=== PATIENT | male | born 1935 | race Caucasian/White ===

== ENCOUNTER 2018-03-16 15:36 | Inpatient (IN) | payer OTHER, MEDICAID ==
[~2018-03-16] VITALS: Ht 175.3 cm; Wt 89.8 kg
[2018-03-16] MEDS ORDERED: KETOROLAC 30MG/ML VIAL IV STA (17:37)
[2018-03-16] MEDS ORDERED: TETANUS, DIPHTHERIA, PERTUSSIS VAC/PF 0.5ML (>7YR OLD) IM ONE (17:45)
[2018-03-16 18:21] LABS: BASOPHILS % 0.6 % (0.0-2.0); EOSINOPHILS % 0.6 % (0.0-5.0); HEMATOCRIT. 42.5 % (42.0-52.0); HEMOGLOBIN. 14.6 g/dL (14.0-18.0); LYMPHOCYTES % 14.6 % (20.0-50.0); MEAN CORPUSCULAR HEMOGLOBIN 31.3 pg (28.0-32.0); MEAN PLATELET VOLUME 8.7 fl (7.4-10.4); MONOCYTES % 7.5 % (2.0-8.0); NEUTROPHILS % 76.7 % (40.0-76.0); PLATELET 212 x1000/uL (130-400); RED BLOOD CELL COUNT 4.67 mill/uL (4.7-6.1); RED CELL DISTRIBUTION WIDTH 14.8 % (11.6-14.6)
[2018-03-16 18:22] LABS: CHLORIDE 105 mEq/L (98-107)
[2018-03-16 18:24] LABS: PARTIAL THROMBOPLASTIN TIME 25.8 sec (23.4-31.0); PROTHROMBIN TIME 10.7 sec (9.4-11.6)
[2018-03-16] MEDS ORDERED: LABETALOL 5MG/ML SYR 20 MG/4 ML SYRINGE IV ONE (19:00)
[2018-03-16 19:34] LABS: BASOPHILS % 0.6 % (0.0-2.0); EOSINOPHILS % 0.4 % (0.0-5.0); HEMATOCRIT. 39.4 % (42.0-52.0); HEMOGLOBIN. 13.2 g/dL (14.0-18.0); LYMPHOCYTES % 14.6 % (20.0-50.0); MEAN CORPUSCULAR HEMOGLOBIN 30.3 pg (28.0-32.0); MEAN CORPUSCULAR VOLUME 90.4 fL (80.0-94.0); MEAN PLATELET VOLUME 8.8 fl (7.4-10.4); NEUTROPHILS % 77.4 % (40.0-76.0); PLATELET 204 x1000/uL (130-400); RED BLOOD CELL COUNT 4.36 mill/uL (4.7-6.1); RED CELL DISTRIBUTION WIDTH 14.1 % (11.6-14.6)
[2018-03-17] VITALS (7 sets, daily range): BP systolic 104–181; BP diastolic 50–76
[2018-03-17] MEDS ORDERED: ONDANSETRON HCL 4MG/2ML VIAL IV PRN (05:00)
[2018-03-17] MEDS ORDERED: GUAIFENESIN 200MG/10ML SUGAR FREE UDC PO PRN (05:00)
[2018-03-17] MEDS ORDERED: DOCUSATE SODIUM 100MG CAPSULE PO PRN (05:00)
[2018-03-17] MEDS ORDERED: ACETAMINOPHEN 325MG TABLET PO PRN (05:00)
[2018-03-17] MEDS ORDERED: CLONIDINE 0.1MG TABLET PO PRN (05:00)
[2018-03-17] MEDS ORDERED: HYDROCODONE/ACETAMINOPHEN 5/325MG TABLET PO PRN (05:00)
[2018-03-17] MEDS: SODIUM CHLORIDE 0.45% 1,000 ML IV SCH ×2 (06:02→20:39)
[2018-03-17] MEDS ORDERED: AMLO5TAB4 MT (11:18)
[2018-03-17] MEDS ORDERED: SENN-46 PO (11:18)
[2018-03-17] MEDS ORDERED: FURO-151 PO (11:18)
[2018-03-17] MEDS ORDERED: ISOS10TA53 PO (11:18)
[2018-03-17] MEDS ORDERED: HALO2TAB PO (11:18)
[2018-03-17] MEDS ORDERED: ASPI-1159 PO (11:18)
[2018-03-18 04:00] VITALS: BP 149/70
[2018-03-18 07:42] LABS: EOSINOPHILS % 6.9 % (0.0-5.0); HEMATOCRIT. 32.5 % (42.0-52.0); HEMOGLOBIN. 11.1 g/dL (14.0-18.0); LYMPHOCYTES % 27.7 % (20.0-50.0); MEAN CORPUSCULAR HEMOGLOBIN 30.8 pg (28.0-32.0); MEAN CORPUSCULAR VOLUME 89.8 fL (80.0-94.0); MONOCYTES % 9.3 % (2.0-8.0); NEUTROPHILS % 55.1 % (40.0-76.0); PLATELET 180 x1000/uL (130-400); RED BLOOD CELL COUNT 3.61 mill/uL (4.7-6.1); RED CELL DISTRIBUTION WIDTH 14.2 % (11.6-14.6)
[2018-03-18 08:00] VITALS: BP 152/55
[2018-03-18 08:06] LABS: CHLORIDE 107 mEq/L (98-107)
[2018-03-18 08:15] LABS: LDL CHOLESTEROL 122 mg/dL (5-100)
[2018-03-18 08:17] LABS: HDL CHOLESTEROL 36 mg/dL (40-59)
[2018-03-18] MEDS: AMLODIPINE 10MG TABLET PO SCH ×2 (08:31→08:39)
[2018-03-18] MEDS: NEOMY SULF/BACITRAC ZN/POLY OINT 28GM TOP SCH (08:42)
[2018-03-18 12:00] VITALS: BP 147/61
[2018-03-18] MEDS: SODIUM CHLORIDE 0.45% 1,000 ML IV SCH (13:19)
[2018-03-18 16:48] VITALS: BP 158/63
[2018-03-18 20:00] VITALS: BP 156/67
[2018-03-19] VITALS: BP 151/54
[2018-03-19 04:00] VITALS: BP 140/62
[2018-03-19] MEDS: SODIUM CHLORIDE 0.45% 1,000 ML IV SCH (05:42)
[2018-03-19 08:00] VITALS: BP 184/66
[2018-03-19] MEDS ORDERED: MEDICATION NOT ON FORMULARY EA (Isosorbide Mononitrate 1 TAB) PO SCH (09:00)
[2018-03-19] MEDS ORDERED: AMLODIPINE 5MG TABLET PO SCH (09:00)
[2018-03-19] MEDS: ISOSORBIDE DINITRATE 10MG TABLET PO SCH ×3 (09:37→17:15)
[2018-03-19] MEDS: AMLODIPINE 10MG TABLET PO SCH (09:37)
[2018-03-19] MEDS: FUROSEMIDE 40MG TABLET PO SCH ×2 (09:37→17:15)
[2018-03-19] MEDS: HALOPERIDOL 1MG TABLET PO SCH ×2 (09:38→17:15)
[2018-03-19] MEDS: ASPIRIN 81MG EC TABLET PO SCH (09:38)
[2018-03-19] MEDS: SENNOSIDES 8.6MG TABLET PO SCH (09:38)
[2018-03-19] MEDS: NEOMY SULF/BACITRAC ZN/POLY OINT 28GM TOP SCH (09:38)
[2018-03-19 12:00] VITALS: BP 119/63
[2018-03-19 16:00] VITALS: BP 125/58
[2018-03-19 20:00] VITALS: BP 129/41
[2018-03-20] VITALS: BP 112/55
[2018-03-20] MEDS: SODIUM CHLORIDE 0.45% 1,000 ML IV SCH ×2 (00:41→17:57)
[2018-03-20 04:00] VITALS: BP 136/62
[2018-03-20 08:00] VITALS: BP 131/58
[2018-03-20] MEDS: ASPIRIN 81MG EC TABLET PO SCH (10:08)
[2018-03-20] MEDS: SENNOSIDES 8.6MG TABLET PO SCH (10:08)
[2018-03-20] MEDS: ISOSORBIDE DINITRATE 10MG TABLET PO SCH ×3 (10:08→17:58)
[2018-03-20] MEDS: FUROSEMIDE 40MG TABLET PO SCH ×2 (10:09→17:58)
[2018-03-20] MEDS: AMLODIPINE 10MG TABLET PO SCH (10:09)
[2018-03-20] MEDS: NEOMY SULF/BACITRAC ZN/POLY OINT 28GM TOP SCH (10:10)
[2018-03-20 12:00] VITALS: BP 124/59
[2018-03-20] MEDS: HALOPERIDOL 1MG TABLET PO SCH ×2 (13:41→17:57)
[2018-03-20 16:00] VITALS: BP 134/58
[2018-03-20 20:00] VITALS: BP 130/56
[2018-03-21] VITALS (7 sets, daily range): BP systolic 114–161; BP diastolic 50–75
[2018-03-21] MEDS: SENNOSIDES 8.6MG TABLET PO SCH (10:11)
[2018-03-21] MEDS: SODIUM CHLORIDE 0.45% 1,000 ML IV SCH (10:11)
[2018-03-21] MEDS: FUROSEMIDE 40MG TABLET PO SCH ×2 (10:11→17:24)
[2018-03-21] MEDS: ASPIRIN 81MG EC TABLET PO SCH (10:11)
[2018-03-21] MEDS: AMLODIPINE 10MG TABLET PO SCH (10:12)
[2018-03-21] MEDS: NEOMY SULF/BACITRAC ZN/POLY OINT 28GM TOP SCH (10:12)
[2018-03-21] MEDS: ISOSORBIDE DINITRATE 10MG TABLET PO SCH ×3 (10:12→17:25)
[2018-03-21] MEDS: HALOPERIDOL 1MG TABLET PO SCH ×2 (10:12→17:24)
[2018-03-21 22:03] LABS: BASOPHILS % 0.8 % (0.0-2.0); EOSINOPHILS % 5.1 % (0.0-5.0); HEMATOCRIT. 33.8 % (42.0-52.0); HEMOGLOBIN. 11.6 g/dL (14.0-18.0); LYMPHOCYTES % 22.4 % (20.0-50.0); MEAN CORPUSCULAR HEMOGLOBIN 30.6 pg (28.0-32.0); MEAN CORPUSCULAR VOLUME 89.4 fL (80.0-94.0); MEAN PLATELET VOLUME 8.6 fl (7.4-10.4); MONOCYTES % 11.4 % (2.0-8.0); NEUTROPHILS % 60.3 % (40.0-76.0); PLATELET 211 x1000/uL (130-400); RED BLOOD CELL COUNT 3.78 mill/uL (4.7-6.1); RED CELL DISTRIBUTION WIDTH 14.1 % (11.6-14.6)
[2018-03-22] VITALS: BP 127/61
[2018-03-22] MEDS: SODIUM CHLORIDE 0.45% 1,000 ML IV SCH (01:40)
[2018-03-22 04:00] VITALS: BP 115/75
[2018-03-22 08:00] VITALS: BP 119/59
[2018-03-22 08:13] VITALS: BP 119/59
== END 2018-03-22 10:45 | disposition home or self-care (01) | DRG 566 ==
LOC: ER 15:38 → EDBD 15:38 → 8WST 23:20 → EDBEDREQ 23:25 → EDBEDREQSVC 23:25 → ENRESERV 03-17 01:58
PROVIDERS: ADMIT Hospitalist; ATTEND Hospitalist
DX: S02.82XA Fracture of other specified skull and facial bones, left side, initial encounter for closed fracture (principal); E78.5 Hyperlipidemia, unspecified; S01.511A Laceration without foreign body of lip, initial encounter; S01.112A Laceration without foreign body of left eyelid and periocular area, initial encounter; W01.0XXA Fall on same level from slipping, tripping and stumbling without subsequent striking against object, initial encounter; I10 Essential (primary) hypertension; I25.10 Atherosclerotic heart disease of native coronary artery without angina pectoris; Z91.81 History of falling; Z79.899 Other long term (current) drug therapy; Z79.82 Long term (current) use of aspirin; Y93.89 Activity, other specified; Y92.89 Other specified places as the place of occurrence of the external cause; Y99.8 Other external cause status
CPT/HCPCS: 36415; 70450; 70486; 71045; 72125; 72170; 73560; 80048; 80053; 80061; 82962; 83735; 85025; 85610; 85730; 86850; 86900; 90471; 90715; 93005; 93970; 96374; 96375; 97110; 97116; 97162; 99285; A6261; J1885; J3490